=== PATIENT | female | born 1940 | race Caucasian/White ===

== ENCOUNTER 2017-03-13 23:55 | Emergency (ER) | payer SELFPAY ==
[~2017-03-13 23:55] MED LIST: ALBU8.5H2 NEB; ERGO400C PO; HYDR12.519 PO; LOSA50TA3 PO; PANT20TA3 PO; SIMV5TAB6 PO
--- NOTE | 2017-03-14 00:53 | NUR ---
CALLED PT IN [place], NO RESPONSE
--- NOTE | 2017-03-14 01:14 | NUR ---
CALLED PT IN [place], NO RESPONSE
== END 2017-03-14 01:15 | disposition left against medical advice (07) ==
LOC: ER 23:57
DX: Z53.21 Procedure and treatment not carried out due to patient leaving prior to being seen by health care provider (principal)